=== PATIENT | male | born 1960 | race Caucasian/White ===

== ENCOUNTER 2016-10-09 12:06 | Day surgery (SDC) | payer BC, MEDICARE ==
--- NOTE | ~2016-10-09 | OP ---
Record Of Operation [facility] [address] [place]. [address] NAME: JORGE SOMMER : 58 STATUS : [facility]#: [id number] AGE: 56 ADM/REG DATE : 10/09/16 MR#: [id number] REPORT SERV DATE: 10/10/16 DICTATED BY: ARTEMIO CHAMPAGNE DATE: 10/09/16 REPORT STATUS : Draft TRANSCRIBED BY: MODL DATE: 10/09/16 DATE OF PROCEDURE: 10/09/2016 PREOPERATIVE DIAGNOSIS: Deviated nasal septum with nasal septal perforation and bilateral inferior turbinate hypertrophy. POSTOPERATIVE DIAGNOSIS: Deviated nasal septum with nasal septal perforation and bilateral inferior turbinate hypertrophy. PROCEDURE: Septoplasty with repair of nasal septal perforation and right inferior turbinate reduction with left inferior turbinate outfracture. SURGEON: Artemio Champagne M.D. ANESTHESIA: General endotracheal. ESTIMATED BLOOD LOSS: 10 mL. INTRAOPERATIVE FLUIDS: 700 mL crystalloid. INTRAOPERATIVE FINDINGS: Moderate left-sided nasal septal deflection with bilateral inferior turbinate hypertrophy. A small perforation in the mid anterior portion of the nasal septum measuring approximately 2 mm in diameter. OPERATIVE PROCEDURE: The patient was identified in the holding room, transported to the operating room. In the operating room, the patient was placed on the operating table in a supine position. Following induction of anesthesia, the patient was intubated without difficulty. Afrin-soaked pledgets were placed to the nose, bilaterally. The septum was injected with 1% lidocaine with 1:100,000 epinephrine. The patient was prepped and draped in preparation for his nasal surgery. A Ramone incision was created in the left side of the nose. Mucoperichondrial flap was developed and extended posteriorly beyond the bony cartilaginous junction. Careful dissection was performed around the area of the patient's nasal septal perforation to minimize trauma to the mucoperichondrial flap. The flap on the left side was completely intact with the exception of the previously existing nasal septal perforation following elevation of this flap. A Ramone incision was created in the left side of the nose. A mucoperichondrial flap was then developed in a similar fashion in the right side of the nose. Due to the defect in the patient's nasal septal cartilage, on performing the dissection through the left side of the nose, a small tear was created around the area of the nasal septal perforation on the flap on the right side. The flap was, otherwise, elevated completely intact. A strip of deflected cartilage was removed from the floor of the nose, removing a width of approximately 8 mm of cartilage from this area. The quadrangular cartilage was then divided from the bony nasal septum, leaving a strong dorsal attachment. There was a deformity of the bony nasal septum to the left side of the junction of the perpendicular plate of the ethmoid and the vomer, which was resected. There was a persistent spur of bone along the floor of the nose related to hypertrophic bone along the nasal crest, which was removed with the use of the osteotome. The flaps were placed and the Record Of Operation [facility] [address] [facility] [place]. [address] NAME: JORGE SOMMER : 58 STATUS : [facility]#: [id number] AGE: 56 ADM/REG DATE : 10/09/16 MR#: [id number] REPORT SERV DATE: 10/10/16 DICTATED BY: ARTEMIO CHAMPAGNE DATE: 10/09/16 REPORT STATUS : Draft TRANSCRIBED BY: DANNI DATE: 10/09/16 septum was noted to be in the midline. A single simple suture was placed using a 4-0 chromic suture for closure of the perforation on the mucoperichondrial flap on the left side. The Toco incision was then closed with the same suture material. A quilting stitch was placed. With concern for tearing the friable flap in the left side of the nose, I did not attempt to reapproximate the edges of the rent on the right mucoperichondrial flap, as the abutting flap on the left side was intact at this point. With the septum returned to the midline, the patient did have bilateral inferior turbinate hypertrophy, greater on the right than the left. A submucosal resection of inferior turbinate tissue was performed on the right side using the sinus shaving instrumentation. The remaining inferior turbinate tissue was outfractured. A simple inferior turbinate outfracture was performed on the left side. At the end of the operative procedure, there was no significant bleeding. Sethi splints were applied to the nose. At this point, an excision of a papilloma was performed from the tip of the patient's uvula. The papilloma was sharply excised, limiting the excision of tissue to the papilloma and the mucosa of the uvula at the tip. Gentle cautery was performed with unipolar cautery following removal of this lesion. The patient was subsequently awakened from anesthesia, extubated in the operating room, transported to the recovery room in good condition. The patient tolerated the procedure well. There were no apparent complications. Specimens included nasal septal bone and cartilage with papilloma from the tip of the uvula. ALICIA/DANNI Artemio Champagne M.D. / [id number] CC: Artemio Champagne M.D.
[~2016-10-09 12:06] MED LIST: ADVIL PO; ASAB PO; ATV.5 PO; COREG12; COREG12 PO; CRESTOR20 MG PO; IMDUR30 PO; LEXAPRO10 PO; LIVALO2 MG PO; LIVALO4 MG PO; LOP25 PO; NEUR100 PO; NEXIUM40 PO; NITROSTAT0.4 MG SL; NORCO1 TAB PO; PLAVIX PO; PRILOSEC40 MG PO
== END 2016-10-09 19:16 | disposition home or self-care (01) ==
LOC: SDC 12:06
PROVIDERS: Otolaryngology
PROC: 09QM0ZZ Repair Nasal Septum, Open Approach (ICD-10-PCS; principal; 2016-10-09 13:15)
DX: J34.2 Deviated nasal septum (principal); J34.89 Other specified disorders of nose and nasal sinuses; J34.3 Hypertrophy of nasal turbinates; I10 Essential (primary) hypertension; I25.10 Atherosclerotic heart disease of native coronary artery without angina pectoris; E78.00 Pure hypercholesterolemia, unspecified; G47.33 Obstructive sleep apnea (adult) (pediatric); G47.30 Sleep apnea, unspecified; K21.9 Gastro-esophageal reflux disease without esophagitis; K64.9 Unspecified hemorrhoids; Z95.5 Presence of coronary angioplasty implant and graft; Z87.891 Personal history of nicotine dependence; Z98.890 Other specified postprocedural states; Z79.899 Other long term (current) drug therapy; Z79.82 Long term (current) use of aspirin; Z79.891 Long term (current) use of opiate analgesic
CPT/HCPCS: 80048; 85014; 85018; 88300; 88304; 93005; A9270-GY; J0690; J2250; J2405; J2550; J2710; J3010